=== PATIENT | male | born 1980 | race Caucasian/White ===

== ENCOUNTER 2017-04-07 14:12 | Emergency (ER) | payer SELFPAY ==
[~2017-04-07] VITALS: Ht 165.1 cm; Wt 76.0 kg
[~2017-04-07 14:12] MED LIST: CYCL-36 PO; TRAM50 PO; Z.0.NO CURRENT MEDS
[2017-04-07 14:16] VITALS: BP 134/79; PULSE 69; RESP 15; TEMP 98.4; O2SAT 97
[2017-04-07 14:30] VITALS: BP 101/50; PULSE 70; RESP 16; O2SAT 99
[2017-04-07] MEDS ORDERED: SODIUM CHLOR 0.9% 1000 ML INJ 1,000 ML IV ONE ×2 (14:30→16:00)
--- NOTE | 2017-04-07 14:32 | PD ---
HPI Chief Complaint: Dizziness Time Seen by Provider: 14:21 Travel History International Travel<30 days: No Contact w/Intl Traveler<30days: No Traveled to known affect area: No History of Present Illness HPI This patient was worried about it exhaustion. 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 He started to feel dizzy and lightheaded and nauseous. He says his sweating decreased. He went inside and had some liquid and tried to cool down. At this point his symptoms are improved by that lightheaded and dizzy and wanted to get checked out. He is not having headache or chest pain or syncope. Symptoms severity is moderate. No alleviating factors. Duration 3 hours PFSH Past Medical History Medical History: Denies Significant Hx Pancreatitis: Yes Influenza Vaccination: No Past Surgical History Surgical History: No Previous Surgery Social History Alcohol Use: No (denies) Tobacco Use: Yes (ONE PPD) Substance Use: No Allergies-Medications (Allergen,Severity, Reaction): Coded Allergies: No Known Allergies (Verified , 04/07/17) Reported Meds & Prescriptions Reported Meds & Active Scripts Active No Active Prescriptions or Reported Medications Review of Systems General / Constitutional: No: Fever Eyes: No: Visual changes HENT: Positive: Lightheadedness, No: Headaches Cardiovascular: No: Chest Pain or Discomfort Respiratory: No: Shortness of Breath Gastrointestinal: Positive: Nausea, No: Abdominal Pain Genitourinary: No: Dysuria Musculoskeletal: Positive: Myalgias, Weakness, Cramping, No: Pain Skin: No Rash Neurologic: Positive: Weakness, Dizziness Psychiatric: No: Depression Endocrine: No: Polydipsia Hematologic/Lymphatic: No: Easy Bruising Physical Exam Narrative GENERAL: Well-nourished, well-developed patient in no apparent distress. SKIN: Focused skin assessment reveals no rash and nodules. Skin is Warm and dry. HEAD: Atraumatic. Normocephalic. EYES: Pupils equal and round. No scleral icterus. No injection or drainage. ENT: No nasal bleeding or discharge. Mucous membranes pink and moist. NECK: Trachea midline. No JVD. CARDIOVASCULAR: Regular rate and rhythm. No murmur appreciated. RESPIRATORY: No accessory muscle use. Clear to auscultation. Breath sounds equal bilaterally. GASTROINTESTINAL: Abdomen soft, non-tender, nondistended. Hepatic and splenic margins not palpable. MUSCULOSKELETAL: No obvious deformities. No clubbing. No cyanosis. No edema. NEUROLOGICAL: Awake and alert. No obvious cranial nerve deficits. Motor grossly within normal limits. Normal speech. PSYCHIATRIC: Appropriate mood and affect; insight and judgment normal. Data Data Last Documented VS Vital Signs Date Time Temp Pulse Resp B/P Pulse Ox O2 Delivery O2 Flow Rate FiO2 04/07/17 16:49 70 16 101/52 100 Room Air 04/07/17 14:16 98.4 Orders Iv Access Insert/Monitor (04/07/17 14:26) Complete Blood Count With Diff (04/07/17 14:26) Basic Metabolic Panel (Bmp) (04/07/17 14:26) Creatine Kinase (Cpk) (04/07/17 14:26) Sodium Chlor 0.9% 1000 Ml Inj (Ns 1000 M (04/07/17 14:30) Electrocardiogram (04/07/17 ) Sodium Chlor 0.9% 1000 Ml Inj (Ns 1000 M (04/07/17 16:00) Labs Laboratory Tests Test 04/07/17 14:40 White Blood Count 5.7 TH/MM3 Red Blood Count 5.53 MIL/MM3 Hemoglobin 14.0 GM/DL Hematocrit 42.6 % Mean Corpuscular Volume 77.1 FL Mean Corpuscular Hemoglobin 25.3 PG Mean Corpuscular Hemoglobin 32.8 % Concent Red Cell Distribution Width 14.2 % Platelet Count 293 TH/MM3 Mean Platelet Volume 6.5 FL Neutrophils (%) (Auto) 68.3 % Lymphocytes (%) (Auto) 22.5 % Monocytes (%) (Auto) 5.3 % Eosinophils (%) (Auto) 2.2 % Basophils (%) (Auto) 1.7 % Neutrophils # (Auto) 3.9 TH/MM3 Lymphocytes # (Auto) 1.3 TH/MM3 Monocytes # (Auto) 0.3 TH/MM3 Eosinophils # (Auto) 0.1 TH/MM3 Basophils # (Auto) 0.1 TH/MM3 CBC Comment DIFF FINAL Differential Comment Sodium Level 139 MEQ/L Potassium Level 3.9 MEQ/L Chloride Level 105 MEQ/L Carbon Dioxide Level 27.2 MEQ/L Anion Gap 7 MEQ/L Blood Urea Nitrogen 17 MG/DL Creatinine 0.92 MG/DL Estimat Glomerular Filtration 93 ML/MIN Rate Random Glucose 143 MG/DL Calcium Level 8.4 MG/DL Total Creatine Kinase 123 U/L MDM Medical Decision Making Medical Screen Exam Complete: Yes Emergency Medical Condition: Yes Medical Record Reviewed: Yes Differential Diagnosis Heat exhaustion, dehydration, heat stroke Narrative Course I have reviewed the patient's electronic medical record. IV placed I gave him 1 L normal saline IV bolus CBC is normal Metabolic profile is normal CK is normal Patient blood pressure is 102 systolic. Stable but low. He says his blood pressure is always low but has no formal diagnosis of blood pressure problems. Given the low blood pressure gave him a second liter of normal saline IV I reviewed his EKG which shows sinus bradycardia at 57 He looks clinically well and stable for outpatient follow-up Diagnosis Primary Impression: Lightheadedness Additional Impression: Hypotension Qualified Code: I95.9 - Hypotension, unspecified hypotension type Additional Instructions: The patient was advised to follow up with their physician and return if they worsen. Med/Other Pt SpecificInfo: Other Scripts No Active Prescriptions or Reported Meds Disposition: 01 DISCHARGE HOME Condition: Stable Vincent Bell MD Apr 07, 2017 14:32
[2017-04-07 14:48] LABS: AUTOMATED NEUTROPHIL # 3.9 TH/MM3 (1.8-7.7); BASOPHIL # 0.1 TH/MM3 (0-0.2); BASOPHIL % 1.7 % (0.0-2.0); EOSINOPHIL # 0.1 TH/MM3 (0-0.4); EOSINOPHIL % 2.2 % (0.0-4.0); HEMATOCRIT 42.6 % (39.0-51.0); HEMO FLAGS DIFF FINAL; LYMPH % 22.5 % (9.0-44.0); LYMPHOCYTE # 1.3 TH/MM3 (1.0-4.8); MEAN CELL VOLUME 77.1 FL (80.0-100.0); MEAN CORPUSCULAR HEMOGLOBIN 25.3 PG (27.0-34.0); MEAN CORPUSCULAR HGB CONC 32.8 % (32.0-36.0); MONO % 5.3 % (0.0-8.0); NEUT % 68.3 % (16.0-70.0); PLATELET COUNT 293 TH/MM3 (150-450); RED BLOOD COUNT 5.53 MIL/MM3 (4.50-5.90); RED CELL DISTRIBUTION WIDTH 14.2 % (11.6-17.2); WHITE BLOOD COUNT 5.7 TH/MM3 (4.0-11.0)
[2017-04-07 14:58] LABS: POTASSIUM 3.9 MEQ/L (3.5-5.1)
[2017-04-07 15:01] LABS: BICARBONATE 27.2 MEQ/L (21.0-32.0)
[2017-04-07 15:41] VITALS: BP_SYST 82; BP_SYST 92; BP_DIAS 46; PULSE 70; RESP 18; O2SAT 99
[2017-04-07 15:45] VITALS: BP 102/54; PULSE 72; RESP 16; O2SAT 99
[2017-04-07 16:49] VITALS: BP 101/52; PULSE 70; RESP 16; O2SAT 100
--- NOTE | 2017-04-08 16:36 | EKG ---
Date Performed: 04/07/2017 Time Performed: 15:58:50 PTAGE: 37 years EKG: SINUS BRADYCARDIA NON-SPECIFIC ST/T WAVE CHANGES NO PREVIOUS TRACING DOCTOR: Kirit Rodas Interpretating Date/Time 04/08/2017 16:36:07
== END 2017-04-07 17:33 | disposition home or self-care (01) ==
LOC: PHED 14:12
DX: R42 Dizziness and giddiness (principal); I95.9 Hypotension, unspecified; K85.90 Acute pancreatitis without necrosis or infection, unspecified
CPT/HCPCS: 80048; 82550; 85025; 93005; 96360; 96361; 99284; J7030

== ENCOUNTER 2017-05-08 06:21 | Emergency (ER) | payer SELFPAY ==
[~2017-05-08] VITALS: Ht 162.6 cm; Wt 76.2 kg
[2017-05-08 06:26] VITALS: BP 132/69; PULSE 62; RESP 18; TEMP 98.1; O2SAT 98
[2017-05-08] MEDS ORDERED: SODIUM CHLOR 0.9% 1000 ML INJ 1,000 ML IV ONE (06:40)
--- NOTE | 2017-05-08 06:43 | PD ---
HPI Chief Complaint: flank pain Time Seen by Provider: 06:40 Travel History International Travel<30 days: No Contact w/Intl Traveler<30days: No Traveled to known affect area: No History of Present Illness HPI 37-year-old male presents to the emergency department for complaint of left flank pain since 2 AM. Patient states has had associated nausea without vomiting. No fever or chills. No injury or fall. No dysuria frequency urgency or hematuria. No referred pain to the lower extremities. No lower 70 numbness tingling or weakness no report of saddle anesthesia or bladder or bowel dysfunction. No abdominal pain. Patient rates pain as 8/10 in intensity. Patient did try acetaminophen and ibuprofen at home without relief. Patient also said he took a one-time dose of tramadol without relief. Patient states symptoms are similar to prior kidney stone but not quite the same. Patient is unable to identify exacerbating or alleviating factors. PFSH Past Medical History Narrative Medical Pancreatitis kidney stone; tobacco use; nursing notes reviewed Pancreatitis: Yes Social History Alcohol Use: No (denies) Tobacco Use: Yes (ONE PPD) Substance Use: No Allergies-Medications (Allergen,Severity, Reaction): Coded Allergies: No Known Allergies (Verified , 05/08/17) Reported Meds & Prescriptions Reported Meds & Active Scripts Active No Active Prescriptions or Reported Medications Review of Systems Except as stated in HPI: all other systems reviewed are Neg General / Constitutional: No: Fever, Chills HENT: No: Congestion Cardiovascular: No: Chest Pain or Discomfort Respiratory: No: Shortness of Breath Gastrointestinal: Positive: Nausea, No: Vomiting, Abdominal Pain Genitourinary: Positive: Flank Pain, No: Dysuria, Hematuria Musculoskeletal: No: Myalgias, Arthralgias Skin: No Rash Neurologic: No: Weakness Psychiatric: No: Anxiety Hematologic/Lymphatic: No: Lymph Node Enlargement Physical Exam Narrative GENERAL: Well-developed well-nourished male in no acute distress no respiratory distress SKIN: Warm and dry. HEAD: Normocephalic. EYES: No scleral icterus. No injection or drainage. NECK: Supple, trachea midline. No JVD or lymphadenopathy. CARDIOVASCULAR: Regular rate and rhythm without murmurs, gallops, or rubs. RESPIRATORY: Breath sounds equal bilaterally. No accessory muscle use. GASTROINTESTINAL: Abdomen soft, non-tender, nondistended. MUSCULOSKELETAL: No cyanosis, or edema. BACK: Nontender without obvious deformity. Left-sided CVA tenderness. Data Data Last Documented VS Vital Signs Date Time Temp Pulse Resp B/P Pulse Ox O2 Delivery O2 Flow Rate FiO2 05/08/17 06:26 98.1 62 18 132/69 98 Orders Complete Blood Count With Diff (05/08/17 06:40) Basic Metabolic Panel (Bmp) (05/08/17 06:40) Urinalysis - C+S If Indicated (05/08/17 06:40) Ct Abd/Pel W/O Iv Contrast (05/08/17 06:40) Ecg Monitoring (05/08/17 06:40) Iv Access Insert/Monitor (05/08/17 06:40) Ketorolac Inj (Toradol Inj) (05/08/17 06:45) Ondansetron Inj (Zofran Inj) (05/08/17 06:45) Sodium Chloride 0.9% Flush (Ns Flush) (05/08/17 06:45) Sodium Chlor 0.9% 1000 Ml Inj (Ns 1000 M (05/08/17 06:40) Ketorolac Inj (Toradol Inj) (05/08/17 07:30) Ondansetron Odt (Zofran Odt) (05/08/17 07:30) Labs Laboratory Tests Test 05/08/17 07:00 Urine pH 6.0 Urine Protein NEG mg/dL Urine Glucose (UA) NEG mg/dL Urine Ketones NEG mg/dL Urine Occult Blood TRACE Urine Nitrite NEG Urine Bilirubin NEG Urine Leukocyte Esterase NEG MDM Medical Decision Making Medical Screen Exam Complete: Yes Emergency Medical Condition: Yes Medical Record Reviewed: Yes Interpretation(s) Last Impressions Abdomen/Pelvis CT 05/08/1740 Signed Impressions: Service Date/Time: Monday, May 08, 2017 06:39 - CONCLUSION: 1. No stones, obstruction or other acute abnormality seen of either kidney. 2. Nonspecific hepatosplenomegaly. 3. Chronic L5 pars defects with grade one L5/S1 spondylolisthesis. Old T12 compression fracture. Jose M Kimball MD Vital Signs Date Time Temp Pulse Resp B/P Pulse Ox O2 Delivery O2 Flow Rate FiO2 05/08/17 06:26 98.1 62 18 132/69 98 Differential Diagnosis Flank pain, renal colic, UTI, pyelonephritis, musculoskeletal pain, pancreatitis , lumbar disc disease, DDD Narrative Course IV access obtained specimens collected and sent for resulting; patient administered Zofran 4 mg IV Toradol 30 mg IV and 1 L normal saline; CT kidney stone: Ordered @ 7:30 care signed over to Dr Bosch Diagnosis Primary Impression: Left flank pain Scripts No Active Prescriptions or Reported Meds Suzi Dennis MD May 08, 2017 06:43
[2017-05-08] MEDS ORDERED: ONDANSETRON HCL 4 MG/2 ML VIAL IVP ONE (06:45)
[2017-05-08] MEDS ORDERED: SODIUM CHLORIDE 0.9% FLUSH 10 ML FLUSH IVF PRN (06:45)
[2017-05-08] MEDS ORDERED: KETOROLAC TROMETHAMINE 30 MG/ML (IVP) VIAL IVP ONE (06:45)
--- NOTE | 2017-05-08 07:14 | RADRPT ---
EXAM DATE/TIME: 05/08/2017 06:39 [facility] COMPARISON: No previous studies available for comparison. INDICATIONS : Left flank pain. ORAL CONTRAST: No oral contrast ingested. RADIATION DOSE: 14.25 CTDIvol (mGy) MEDICAL HISTORY : None SURGICAL HISTORY : None. ENCOUNTER: Initial ACUITY: 1 day PAIN SCALE: 5/10 LOCATION: Left flank TECHNIQUE: Volumetric scanning of the abdomen and pelvis was performed. Using automated exposure control and ad justment of the mA and/or kV according to patient size, radiation dose was kept as low as reasonably achievable to obtain optimal diagnostic quality images. DICOM format image data is available electro nically for review and comparison. FINDINGS: LOWER LUNGS: The visualized lower lungs are clear. LIVER: Enlarged I. greater than 20 cm craniocaudal. No focal hepatic lesion seen. SPLEEN: Enlarged at at least 14 cm craniocaudal, 14.4 cm anterior to posterior and 7 cm transverse. No focal splenic lesion demonstrated. PANCREAS: Within normal limits. KIDNEYS: Normal in size and shape. There is no mass, stone, or hydronephrosis. ADRENAL GLANDS: Within normal limits. VASCULAR: There is no aortic aneurysm. BOWEL/MESENTERY: The stomach, small bowel, and colon demonstrate no acute abnormality. There is no free intraperitone al air or fluid. ABDOMINAL WALL: Within normal limits. RETROPERITONEUM: There is no lymphadenopathy. BLADDER: No wall thickening or mass. REPRODUCTIVE: Within normal limits. INGUINAL: There is no lymphadenopathy or hernia. MUSCULOSKELETAL: There are chronic L5 pars defects with grade one L5/S1 spondylolisthesis. Chronic appearing endplate concavity with mild loss of height and chronic Schmorl's node changes seen superior and plate of T12. No acute bony abnormality demonstrated. CONCLUSION: 1. No stones, obstruction or other acute abnormality seen of either kidney. 2. Nonspecific hepatosplenomegaly. 3. Chronic L5 pars defects with grade one L5/S1 spondylolisthesis. Old T12 compression fracture. Jose M Kimball MD on May 08, 2017 at 7:07 Board Certified Radiologist. This report was verified electronically.
[2017-05-08 07:18] LABS: BLOOD, URINE TRACE (NEG); GLUCOSE,URINE NEG (NEG); KETONE, URINE NEG (NEG); NITRITE,URINE NEG (NEG)
[2017-05-08] MEDS ORDERED: KETOROLAC TROMETHAMINE 60 MG/2 ML (IM) VIAL IM ONE (07:30)
[2017-05-08] MEDS ORDERED: ONDANSETRON ODT 4 MG TAB PO ONE (07:30)
[2017-05-08 07:35] LABS: METHOD OF COLLECTION CLEAN CATCH; URINE COLOR YELLOW (YELLW/STRAW)
[2017-05-08 07:36] LABS: COMMENT (UR) CULT NOT INDICATED; COMMENT2 (UR) MUCOUS PRESENT; CULTURE IF INDICATED CULT NOT INDICATED; RBC, URINE 0-3 /hpf (0-3); SQUAMOUS EPITHELIAL CELL URINE 0-5 /hpf (0-5)
--- NOTE | 2017-05-08 07:37 | PD ---
Physical Exam Narrative Received sign out from previous team to follow up labs and reevaluate. 37yo M with no significant PMH presents to the ED with c/o left sided back pain since this morning. Associated with some nausea. States it is nonradiating and he has had this before and thought it was kidney stone but never follow up with anyone. Denies any fever, chest pain, sob, vomiting, testicular pain, dysuria, hematuria, fall, focal weakness or numbness, incontinence. CTa/p showed no stones, obstruction, or other acute abnormality seen of either kidney. Old T12 compression fracture. Nonspecific hepatosplenomegaly. UA showed trace blood. Negative leukocyte or nitrite. Pt given zofran and toradol IM. 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 Labs reviewed, no leukocytosis. BMP unremarkable. Pt is asking for stronger pain medication. Morphine IM given. Pt reevaluated after morphine and states pain has improved. No focal neurologic deficits. Sometimes the pain radiates to left posterior thigh with elevation of left leg. Return precautions given. Data Data Last Documented VS Vital Signs Date Time Temp Pulse Resp B/P Pulse Ox O2 Delivery O2 Flow Rate FiO2 05/08/17 08:12 18 05/08/17 08:00 90 106/57 96 Room Air 05/08/17 06:26 98.1 Orders Complete Blood Count With Diff (05/08/17 06:40) Basic Metabolic Panel (Bmp) (05/08/17 06:40) Urinalysis - C+S If Indicated (05/08/17 06:40) Ct Abd/Pel W/O Iv Contrast (05/08/17 06:40) Ecg Monitoring (05/08/17 06:40) Iv Access Insert/Monitor (05/08/17 06:40) Ketorolac Inj (Toradol Inj) (05/08/17 06:45) Ondansetron Inj (Zofran Inj) (05/08/17 06:45) Sodium Chloride 0.9% Flush (Ns Flush) (05/08/17 06:45) Sodium Chlor 0.9% 1000 Ml Inj (Ns 1000 M (05/08/17 06:40) Ketorolac Inj (Toradol Inj) (05/08/17 07:30) Ondansetron Odt (Zofran Odt) (05/08/17 07:30) Morphine Inj (Morphine Inj) (05/08/17 08:30) Labs Laboratory Tests Test 05/08/17 05/08/17 07:00 07:25 Urine Collection Type CLEAN CATCH Urine Color YELLOW Urine Turbidity CLEAR Urine pH 6.0 Urine Specific [place] 1.025 Urine Protein NEG mg/dL Urine Glucose (UA) NEG mg/dL Urine Ketones NEG mg/dL Urine Occult Blood TRACE Urine Nitrite NEG Urine Bilirubin NEG Urine Leukocyte Esterase NEG Urine RBC 0-3 /hpf Urine WBC /hpf Urine Squamous Epithelial 0-5 /hpf Cells Urine Amorphous Sediment FEW Microscopic Urinalysis Comment CULT NOT INDICATED Urine Collection Time 0700 White Blood Count 5.1 TH/MM3 Red Blood Count 5.02 MIL/MM3 Hemoglobin 12.6 GM/DL Hematocrit 38.4 % Mean Corpuscular Volume 76.5 FL Mean Corpuscular Hemoglobin 25.1 PG Mean Corpuscular Hemoglobin 32.8 % Concent Red Cell Distribution Width 14.2 % Platelet Count 195 TH/MM3 Mean Platelet Volume 6.2 FL Neutrophils (%) (Auto) 65.1 % Lymphocytes (%) (Auto) 21.1 % Monocytes (%) (Auto) 9.7 % Eosinophils (%) (Auto) 3.0 % Basophils (%) (Auto) 1.1 % Neutrophils # (Auto) 3.2 TH/MM3 Lymphocytes # (Auto) 1.1 TH/MM3 Monocytes # (Auto) 0.5 TH/MM3 Eosinophils # (Auto) 0.2 TH/MM3 Basophils # (Auto) 0.1 TH/MM3 CBC Comment DIFF FINAL Differential Comment Sodium Level 136 MEQ/L Potassium Level 3.8 MEQ/L Chloride Level 103 MEQ/L Carbon Dioxide Level 25.9 MEQ/L Anion Gap 7 MEQ/L Blood Urea Nitrogen 13 MG/DL Creatinine 0.75 MG/DL Estimat Glomerular Filtration 117 ML/MIN Rate Random Glucose 99 MG/DL Calcium Level 8.3 MG/DL MDM Supervised Visit with JAYJAY: No Diagnosis Primary Impression: Back pain Qualified Code: M54.42 - Acute left-sided low back pain with left-sided sciatica Patient Instructions: General Instructions Departure Forms: Tests/Procedures Additional Instruction: Please follow up with your PMD in 3-7 days. Return to the ED if symptoms worsen. Med/Other Pt SpecificInfo: Prescription(s) given Scripts Ibuprofen 600 Mg [id number] Mg PO Q8H PRN (PAIN) #20 TAB Ref 0 Prov:Yadi Bosch DO 05/08/17 Disposition: 01 DISCHARGE HOME Condition: Stable Yadi Bosch DO May 08, 2017 07:37
[2017-05-08 07:41] LABS: AUTOMATED NEUTROPHIL # 3.2 TH/MM3 (1.8-7.7); BASOPHIL # 0.1 TH/MM3 (0-0.2); BASOPHIL % 1.1 % (0.0-2.0); EOSINOPHIL # 0.2 TH/MM3 (0-0.4); HEMATOCRIT 38.4 % (39.0-51.0); HEMO FLAGS DIFF FINAL; LYMPH % 21.1 % (9.0-44.0); LYMPHOCYTE # 1.1 TH/MM3 (1.0-4.8); MEAN CELL VOLUME 76.5 FL (80.0-100.0); MEAN CORPUSCULAR HEMOGLOBIN 25.1 PG (27.0-34.0); MEAN CORPUSCULAR HGB CONC 32.8 % (32.0-36.0); MONO % 9.7 % (0.0-8.0); NEUT % 65.1 % (16.0-70.0); PLATELET COUNT 195 TH/MM3 (150-450); RED BLOOD COUNT 5.02 MIL/MM3 (4.50-5.90); RED CELL DISTRIBUTION WIDTH 14.2 % (11.6-17.2); WHITE BLOOD COUNT 5.1 TH/MM3 (4.0-11.0)
[2017-05-08 07:54] LABS: POTASSIUM 3.8 MEQ/L (3.5-5.1)
[2017-05-08 07:57] LABS: BICARBONATE 25.9 MEQ/L (21.0-32.0)
[2017-05-08 08:00] VITALS: BP 106/57; PULSE 90; RESP 18; O2SAT 96
[2017-05-08] MEDS ORDERED: MORPHINE SULFATE 4 MG/ML INJ IM ONE (08:30)
[2017-05-08] MEDS ORDERED: IBUP-232 PO (08:38)
[2017-05-08 08:50] VITALS: RESP 18
== END 2017-05-08 08:59 | disposition home or self-care (01) ==
LOC: PHED 06:21
DX: M54.42 Lumbago with sciatica, left side (principal); F17.200 Nicotine dependence, unspecified, uncomplicated
CPT/HCPCS: 74176; 80048; 81001; 85025; 96372; 99284; J1885; J2270

== ENCOUNTER 2017-07-07 13:31 | Emergency (ER) | payer OTHER ==
[~2017-07-07] VITALS: Ht 162.6 cm; Wt 75.0 kg
[~2017-07-07 13:31] MED LIST changes: -CYCL-36 PO; +IBUP-232 PO; -TRAM50 PO; -Z.0.NO CURRENT MEDS
[2017-07-07 13:39] VITALS: BP 125/64; PULSE 80; RESP 16; TEMP 99.2; O2SAT 99
[2017-07-07] MEDS ORDERED: ACETAMINOPHEN/HYDROcodone 325 MG/5 MG TAB PO ONE (14:30)
--- NOTE | 2017-07-07 14:32 | PD ---
HPI Chief Complaint: Fall Time Seen by Provider: 13:43 Travel History International Travel<30 days: No Contact w/Intl Traveler<30days: No Traveled to known affect area: No History of Present Illness HPI This 37-year-old male is complaining of back pain. He fell off of her story roof this morning. He landed flat on his back. He's been having some pain in his back. He does not have any numbness or tingling in his legs. He has not noted any weakness. Pain is aggravated by walking. He says he did not get relief with Tylenol and Motrin. PFSH Past Medical History Diminished Hearing: No Pancreatitis: Yes Tetanus Vaccination: < 5 Years Social History Alcohol Use: No (denies) Tobacco Use: Yes (ONE PPD) Substance Use: No Allergies-Medications (Allergen,Severity, Reaction): Coded Allergies: No Known Allergies (Verified , 07/07/17) Reported Meds & Prescriptions Reported Meds & Active Scripts Active Lortab (Hydrocodone-Acetaminophen) 7.5-325 Mg Tab 1 Tab PO Q4H PRN Review of Systems Except as stated in HPI: all other systems reviewed are Neg General / Constitutional: No: Chills Eyes: No: Diploplia, Blurred Vision HENT: No: Headaches Cardiovascular: No: Chest Pain or Discomfort, Palpitations Respiratory: No: Cough, Shortness of Breath Gastrointestinal: No: Nausea, Vomiting Genitourinary: No: Urgency Musculoskeletal: Positive: Myalgias, Pain Skin: No Rash, No Itching Neurologic: No: Weakness Hematologic/Lymphatic: No: Easy Bruising Physical Exam Narrative GENERAL: Well-developed male SKIN: Focused skin assessment warm/dry. HEAD: Atraumatic. Normocephalic. EYES: Pupils equal and round. No scleral icterus. No injection or drainage. ENT: No nasal bleeding or discharge. Mucous membranes pink and moist. NECK: Trachea midline. No JVD. CARDIOVASCULAR: Regular rate and rhythm. No murmur appreciated. RESPIRATORY: No accessory muscle use. Clear to auscultation. Breath sounds equal bilaterally. GASTROINTESTINAL: Abdomen soft, non-tender, nondistended. Hepatic and splenic margins not palpable. MUSCULOSKELETAL: No obvious deformities. No clubbing. No cyanosis. No edema. Tenderness of the lower back in the midline NEUROLOGICAL: Awake and alert. No obvious cranial nerve deficits. Motor grossly within normal limits. Normal speech. Straight leg raising is normal. He has good strength in plantar and dorsiflexion PSYCHIATRIC: Appropriate mood and affect; insight and judgment normal. Data Data Last Documented VS Vital Signs Date Time Temp Pulse Resp B/P (MAP) Pulse Ox O2 Delivery O2 Flow Rate FiO2 07/07/17 15:41 07/07/17 13:49 16 07/07/17 13:39 99.2 80 99 Room Air Orders Orders Acetamin-Hydrocod 325-5 Mg ([place] 5-325 (07/07/17 14:30) Spine, Lumbar - Ltd (Ap & Lat) (07/07/17 14:19) MDM Medical Decision Making Medical Screen Exam Complete: Yes Emergency Medical Condition: Yes Medical Record Reviewed: Yes Differential Diagnosis Differential includes compression fracture, contusion Narrative Course X-rays negative for fracture. Impression is contusion. Diagnosis Primary Impression: Back pain Scripts Hydrocodone-Acetaminophen (Lortab) 7.5-325 Mg Tab 1 TAB PO Q4H Y for PAIN, #20 TAB 0 Refills Prov: Duran Medley MD 07/07/17 Disposition: 01 DISCHARGE HOME Condition: Stable Duran Medley MD Jul 07, 2017 14:32
--- NOTE | 2017-07-07 15:18 | RADRPT ---
EXAM DATE/TIME: 07/07/2017 14:33 [facility] COMPARISON: No previous studies available for comparison. INDICATIONS : Low back pain post fall from ladder. MEDICAL HISTORY : Pancreatitis. T-12 fracture. SURGICAL HISTORY : None. ENCOUNTER: Initial ACUITY: 1 day PAIN SCORE: 9/10 LOCATION: lumbar spine FINDINGS: There is mild to moderate wedge compression deformity at T12 which appears remote the lumbar spine ap pears intact with normal alignment and no evidence of fracture. Disc spaces are satisfactorily mainta ined. Mineralization is normal. No destructive changes appreciated. CONCLUSION: No acute bony injury Jose M Monaco MD on July 07, 2017 at 15:16 Board Certified Radiologist. This report was verified electronically.
[2017-07-07] MEDS ORDERED: HYDR-3534 PO (15:39)
== END 2017-07-07 15:51 | disposition home or self-care (01) ==
LOC: PHED 13:31
DX: M54.9 Dorsalgia, unspecified (principal); K85.90 Acute pancreatitis without necrosis or infection, unspecified; F17.200 Nicotine dependence, unspecified, uncomplicated
CPT/HCPCS: 72100; 99283